=== PATIENT | male | born 1960 | race Caucasian/White ===

== ENCOUNTER → 2017-04-03 | Outpatient (CLI) | payer BC ==
[~2017-04-03] MED LIST: LASIX40 MG PO; SPIRONOLACTONE50 MG PO
[2017-04-03 14:52] LABS: TYPE OF FLUID PARACENTESIS
[2017-04-03 15:25] LABS: BODY FLUID RBC'S < 1000 /MM^3 (0-100); BODY FLUID WBC'S 298 /MM^3 (0-500)
[2017-04-03 16:01] LABS: BODY FLUID EOSINOPHILS 0 % (0-25); MONONUCLEAR WBC'S 66 %; POLYNUCLEAR WBC'S 34 % (0-25)
== END | disposition home or self-care (01) ==
LOC: RAD 13:13
PROVIDERS: Internal Medicine Gastroenterology
PROC: 0W9G3ZZ Drainage of Peritoneal Cavity, Percutaneous Approach (ICD-10-PCS; principal; 2017-04-03)
DX: R18.8 Other ascites (principal)
CPT/HCPCS: 87070; 87075; 87205; 89051

== ENCOUNTER → 2017-05-29 | Outpatient (CLI) | payer BC ==
[~2017-05-29] VITALS: Ht 203.2 cm; Wt 107.0 kg
== END | disposition home or self-care (01) ==
LOC: RAD 08:05
PROC: 0W9G3ZZ Drainage of Peritoneal Cavity, Percutaneous Approach (ICD-10-PCS; principal; 2017-05-29)
DX: R18.8 Other ascites (principal)

== ENCOUNTER → 2017-08-19 | Outpatient (CLI) | payer BC ==
[~2017-08-19] MED LIST changes: +ALDACTONE50 MG PO; +LASIX20 MG PO
== END | disposition home or self-care (01) ==
LOC: RAD 12:58
PROC: 0W9G3ZZ Drainage of Peritoneal Cavity, Percutaneous Approach (ICD-10-PCS; principal; 2017-08-19)
DX: R18.8 Other ascites (principal)
CPT/HCPCS: 49083

== ENCOUNTER → 2017-09-16 | Outpatient (CLI) | payer BC | END | disposition home or self-care (01) | LOC: RAD 13:02 | PROC: 0W9G3ZZ Drainage of Peritoneal Cavity, Percutaneous Approach (ICD-10-PCS; principal; 2017-09-16) | DX: R18.8 Other ascites (principal) | CPT/HCPCS: 49083 ==

== ENCOUNTER → 2017-10-14 | Outpatient (CLI) | payer BC ==
[~2017-10-14] MED LIST changes: +AUGMENTIN875 MG PO; +FUROSEMIDE20 MG PO; +LACTULOSE10 GM/151 PO; +SPIRIVA RESPIMAT4 GM IH
== END | disposition home or self-care (01) ==
LOC: RAD 12:58
PROC: 0WJG3ZZ Inspection of Peritoneal Cavity, Percutaneous Approach (ICD-10-PCS; principal; 2017-10-14)
DX: Z53.09 Procedure and treatment not carried out because of other contraindication (principal)
CPT/HCPCS: 76705